=== PATIENT | female | born 1945 | race Caucasian/White ===

== ENCOUNTER 2017-04-30 12:40 | Outpatient (CLI) | payer MEDICARE, OTHER ==
[~2017-04-30] VITALS: Ht 167.6 cm; Wt 83.9 kg
[~2017-04-30 12:40] MED LIST: ASPI81CH PO; ATOR1TAB21 PO; CALC500T21 PO; CETI10CH PO; FOLI1TAB4 PO; MONT10TA2 PO; MULT1TAB10 PO; PEPC1TAB2 PO; PROAAER10 INH; SPIR25TA2 PO; TORS10TA3 PO; VITA100066 PO
[2017-04-30] MEDS ORDERED: NS 1,000 ML IV ONE (13:00)
[2017-04-30] MEDS ORDERED: PROPOFOL 200 MG/20 ML VIAL As Ordered ONE ×2 (13:29→13:37)
[2017-04-30] MEDS ORDERED: LIDOCAINE 2% INJ 100 MG/5 ML SDV (FOR ANES.) As Ordered ONE (13:29)
--- NOTE | 2017-04-30 13:48 | ROOR ---
Patient Name: Naheed Vallejo Procedure Date: 04/30/2017 1:25 PM Date of : 1945 Age: 71 Room: [facility] Gender: Female Note Status: Finalized Procedure: Colonoscopy Indications: Screening in patient at increased risk: Family history of 1st-degree relative with colorectal cancer Providers: Francisco Hoover Jr, MD Referring MD: BENJAMIN MAYA MD Requesting Provider: Medicines: Propofol per Anesthesia Complications: No immediate complications. Procedure: Pre-Anesthesia Assessment: - Prior to the procedure, a History and Physical was performed, and patient medications and allergies were reviewed. The patient is competent. The risks and benefits of the procedure and the sedation options and risks were discussed with the patient. All questions were answered and informed consent was obtained. Patient identification and proposed procedure were verified by the physician and the nurse in the pre-procedure area and in the procedure room. Mental Status Examination: alert and oriented. Airway Examination: normal oropharyngeal airway and neck mobility. Respiratory Examination: clear to auscultation. CV Examination: normal. ASA Grade Assessment: II - A patient with mild systemic disease. After reviewing the risks and benefits, the patient was deemed in satisfactory condition to undergo the procedure. The anesthesia plan was to use moderate sedation / analgesia (conscious sedation). Immediately prior to administration of medications, the patient was re-assessed for adequacy to receive sedatives. The heart rate, respiratory rate, oxygen saturations, blood pressure, adequacy of pulmonary ventilation, and response to care were monitored throughout the procedure. The physical status of the patient was re-assessed after the procedure. The Colonoscope was introduced through the anus and advanced to the cecum, identified by appendiceal orifice and ileocecal valve. The colonoscopy was performed without difficulty. The patient tolerated the procedure well. The quality of the bowel preparation was adequate and good. Findings: The perianal and digital rectal examinations were normal. Pertinent negatives include normal sphincter tone, no palpable rectal lesions and no anal lesion or abnormality was detected. The rectum, recto-sigmoid colon, sigmoid colon, descending colon, transverse colon, ascending colon, cecum, appendiceal orifice and ileocecal valve appeared normal. Impression: - The rectum, recto-sigmoid colon, sigmoid colon, descending colon, transverse colon, ascending colon, cecum, appendiceal orifice and ileocecal valve are normal. - No specimens collected. Recommendation: - Discharge patient to home (ambulatory). - Repeat colonoscopy in 5 years for surveillance. Francisco Hoover MD Francisco Hoover Jr, MD 04/30/2017 1:47:38 PM This report has been signed electronically. Number of Addenda: 0 Note Initiated On: 04/30/2017 1:25 PM Estimated Blood Loss: Estimated blood loss: none.
[2017-04-30 14:17] VITALS: BP 146/72
== END 2017-04-30 14:18 | disposition home or self-care (01) ==
LOC: M OPP 12:40
PROVIDERS: ATTEND Surgery
DX: Z12.11 Encounter for screening for malignant neoplasm of colon (principal); Z80.0 Family history of malignant neoplasm of digestive organs; Z86.010 Personal history of colon polyps; J31.0 Chronic rhinitis; I11.9 Hypertensive heart disease without heart failure; I48.91 Unspecified atrial fibrillation; E78.00 Pure hypercholesterolemia, unspecified; I50.9 Heart failure, unspecified; I48.92 Unspecified atrial flutter; J45.909 Unspecified asthma, uncomplicated; G47.30 Sleep apnea, unspecified; M85.80 Other specified disorders of bone density and structure, unspecified site; Z79.899 Other long term (current) drug therapy; Z79.01 Long term (current) use of anticoagulants; Z79.82 Long term (current) use of aspirin; Z87.891 Personal history of nicotine dependence

== ENCOUNTER → 2019-03-08 | Outpatient (CLI) | payer MEDICARE, OTHER ==
[~2019-03-08] MED LIST changes: -ASPI81CH PO; +ASPI81CH49 PO; +FOLI1TAB11 PO; -FOLI1TAB4 PO; -PEPC1TAB2 PO; +PEPC40TA12 PO; +SPIR-10 PO; -SPIR25TA2 PO
[2019-03-08 14:18] LABS: ALBUMIN 4.2 GM/DL (3.2-5.2); BILIRUBIN,TOTAL 0.8 MG/DL (0.2-1.0); CALCIUM LEVEL 9.6 MG/DL (8.8-10.2); CHOLESTEROL RISK RATIO 2.393 (<5); CREATININE FOR GFR 1.2 MG/DL (0.55-1.30); GLOMERULAR FILTRATION RATE 46.8 (>39); POTASSIUM SERUM 4.1 MEQ/L (3.5-5.1); TOTAL PROTEIN 7.4 GM/DL (6.4-8.2)
== END ==
LOC: M WUC 08:32
PROVIDERS: ATTEND Internal Medicine
DX: E78.5 Hyperlipidemia, unspecified (principal); I10 Essential (primary) hypertension

== ENCOUNTER → 2019-05-22 | Outpatient (CLI) | payer MEDICARE, OTHER ==
--- NOTE | 2019-05-23 19:12 | SLEEPCENT ---
DATE OF PROCEDURE: 05/22/2019 ORDERED BY: Jeanmarie Cedillo PA-C Nocturnal polysomnography was performed for reevaluation of sleep physiology in this patient with a prior history of obstructive sleep apnea syndrome who has accomplished significant weight loss. 7 hours and 23 minutes of data were reviewed. There were 384 minutes of sleep identified. Sleep latency was normal at 28 minutes. Rapid eye movement (REM) latency was normal at 72 minutes. Sleep architecture was good with four REM cycles. Overall sleep efficiency 88%. The patient's electrocardiogram showed a sinus rhythm with occasional premature atrial contractions (PACs), average heart rate 57 beats per minute. EEG showed normal waveforms for awake and sleep. There were 11 respiratory events identified of 10 seconds in duration or greater for an apnea-hypopnea index of 1.7. The events were exclusively in stage REM. Arousals from respiratory events occurred only 1.6 times per hour. There was little activity in the limb leads and saturations remained normal. Remaining measures of sleep physiology were normal. IMPRESSION: Normal nocturnal polysomnography with snoring.
== END ==
LOC: M SLEEP 20:00
PROVIDERS: ATTEND Physician Assistant
DX: R06.83 Snoring (principal)

== ENCOUNTER → 2020-10-17 | Outpatient (CLI) | payer SELFPAY ==
[~2020-10-17] MED LIST changes: +MONT10TA10 PO; -MONT10TA2 PO
== END ==
LOC: M LABSMTC 11:22
PROVIDERS: ATTEND Pediatrics
DX: Z20.822 Contact with and (suspected) exposure to COVID-19 (principal)

== ENCOUNTER → 2022-06-22 | Outpatient (CLI) | payer MEDICARE, OTHER ==
[~2022-06-22] MED LIST changes: +ALEN70TA87 PO; +ATEN25TA PO; -MONT10TA10 PO; +MONT10TA97 PO; +MULT-90 PO; +SUPE600T4 PO; +VITA100093 PO
== END ==
LOC: M LABSMTC 11:27
PROVIDERS: ATTEND Anesthesiology
DX: Z01.812 Encounter for preprocedural laboratory examination (principal); Z20.822 Contact with and (suspected) exposure to COVID-19

== ENCOUNTER 2022-06-26 09:13 | Day surgery (SDC) | payer MEDICARE, OTHER ==
[~2022-06-26] VITALS: Ht 167.6 cm; Wt 73.5 kg
[~2022-06-26 09:13] MED LIST changes: +NS 1,000 ML IV ONE
[2022-06-26] MEDS ORDERED: LIDOCAINE 2% 100MG/5ML SDV (FOR ANES.) As Ordered ONE (09:56)
[2022-06-26] MEDS ORDERED: propofoL 200 MG/20 ML VIAL As Ordered ONE (09:56)
[2022-06-26 10:53] VITALS: BP 102/56
== END 2022-06-26 11:11 | disposition home or self-care (01) ==
LOC: M OPP 09:13
PROVIDERS: ATTEND Surgery
DX: Z12.11 Encounter for screening for malignant neoplasm of colon (principal); Z80.0 Family history of malignant neoplasm of digestive organs; Q43.8 Other specified congenital malformations of intestine; Z79.51 Long term (current) use of inhaled steroids; Z79.82 Long term (current) use of aspirin; Z79.899 Other long term (current) drug therapy; I48.91 Unspecified atrial fibrillation; I34.9 Nonrheumatic mitral valve disorder, unspecified; J45.909 Unspecified asthma, uncomplicated; E78.00 Pure hypercholesterolemia, unspecified; M18.0 Bilateral primary osteoarthritis of first carpometacarpal joints; Z86.79 Personal history of other diseases of the circulatory system

== ENCOUNTER → 2024-03-29 | Outpatient (CLI) | payer MEDICARE, OTHER ==
[~2024-03-29] MED LIST changes: -NS 1,000 ML IV ONE
== END ==
LOC: M EKG 10:48
PROVIDERS: ATTEND Internal Medicine
DX: I48.0 Paroxysmal atrial fibrillation (principal); I49.5 Sick sinus syndrome

== ENCOUNTER → 2024-04-04 | Outpatient (CLI) | payer MEDICARE, OTHER | LOC: M PLAIMG 10:51 | PROVIDERS: ATTEND Physician Assistant | DX: I08.0 Rheumatic disorders of both mitral and aortic valves (principal); I77.810 Thoracic aortic ectasia; Z48.812 Encounter for surgical aftercare following surgery on the circulatory system; R00.1 Bradycardia, unspecified; I45.10 Unspecified right bundle-branch block ==

== ENCOUNTER 2024-05-25 15:02 | Inpatient (IN) | payer MEDICARE, OTHER ==
[~2024-05-25] VITALS: Ht 167.6 cm; Wt 70.6 kg
[2024-05-25 16:21] LABS: VENOUS BASE EXCESS 1.8 (-2.0-2.0); VENOUS HCO3 26.8 MMOL/L (23.0-27.0); VENOUS O2 SATURATION 82.4 % (60.0-80.0); VENOUS PARTIAL PRESSURE CO2 43.6 mmHg (38.0-50.0); VENOUS PARTIAL PRESSURE O2 45.1 mmHg (30.0-50.0); VENOUS PH 7.407 UNITS (7.330-7.430); VENOUS STANDARD HCO3 25.7 MMOL/L; VENOUS TOTAL CO2 28.2 MMOL/L (24.0-28.0)
[2024-05-25] MEDS: NS 1,000 ML IV ONE (16:23)
[2024-05-25 16:33] LABS: BASO % 0.3 % (0.0-1.0); EOS # 0.1 10^3/uL (0.0-0.5); HEMATOCRIT 35.1 % (36.0-47.0); HEMOGLOBIN 12.3 g/dl (12.0-15.5); LYMPH % 15.3 % (24.0-44.0); MEAN CORPUSCULAR VOLUME 94.1 fl (80.0-96.0); MONO # 0.9 10^3/uL (0.0-0.8); NEUTROPHILS # 4.8 10^3/uL (1.5-8.5); NEUTROPHILS % 70.3 % (36.0-66.0); PLATELET COUNT, AUTOMATED 143 10^3/uL (150-450); RED BLOOD COUNT 3.73 10^6/uL (4.00-5.40); WHITE BLOOD COUNT 6.8 10^3/uL (4.0-10.0)
[2024-05-25 16:50] LABS: AMYLASE 62 U/L (30-118)
[2024-05-25 16:51] LABS: ALBUMIN 3.3 G/DL (3.2-5.2); ALKALINE PHOSPHATASE 142 U/L (46-116); ALT/SGPT 49 U/L (7.0-40); AST/SGOT 59 U/L (<34); BILIRUBIN,DIRECT 0.2 MG/DL (<0.4); BILIRUBIN,TOTAL 0.4 MG/DL (0.3-1.2); BLOOD UREA NITROGEN 25 MG/DL (9-23); CALCIUM LEVEL 8.2 MG/DL (8.3-10.6); CARBON DIOXIDE LEVEL 27 MMOL/L (20-31); CHLORIDE LEVEL 100 MMOL/L (98-107); CREATININE FOR GFR 1.09 MG/DL (0.55-1.30); GLOMERULAR FILTRATION RATE 51.5 (>39); GLUCOSE, FASTING 105 MG/DL (74-106); POTASSIUM SERUM 3.9 MMOL/L (3.5-5.1); SODIUM LEVEL 132 MMOL/L (136-145); TOTAL PROTEIN 7.5 G/DL (5.7-8.2)
[2024-05-25 16:58] LABS: PROCALCITONIN 1.75 ng/ml
[2024-05-25] MEDS: METOPROLOL 5 MG/5 ML VIAL IV SCH (16:58)
[2024-05-25 17:00] LABS: INR 1.03; PARTIAL THROMBOPLASTIN TIME 37.6 SECONDS (24.8-34.2); PROTHROMBIN TIME 13.2 SECONDS (12.5-14.5)
[2024-05-25] MEDS ORDERED: PILL CUTTER 1 EACH XX ONE (17:27)
[2024-05-25 17:30] VITALS: BP 106/76
[2024-05-25] MEDS: METOPROLOL TART 25 MG TABLET PO ONE (17:30)
[2024-05-25] MEDS ORDERED: ISOVUE-370 76% 100ML VIAL As Ordered ONE (18:00)
[2024-05-25 18:03] LABS: APPEARANCE, URINE CLEAR (CLEAR); BACTERIA, URINE AUTO NEGATIVE (NEGATIVE); BILIRUBIN, URINE AUTO NEGATIVE (NEGATIVE); BLOOD, URINE BLOOD NEGATIVE (NEGATIVE); COLOR, URINE STRAW (YELLOW); GLUCOSE, URINE (UA) AUTO NEGATIVE (NEGATIVE); KETONE, URINE AUTO NEGATIVE (NEGATIVE); LEUKOCYTE ESTERASE, URINE AUTO NEGATIVE (NEGATIVE); NITRITE, URINE AUTO NEGATIVE (NEGATIVE); PROTEIN, URINE AUTO NEGATIVE (NEGATIVE); RBC, URINE AUTO 0 /HPF (0-3); SPECIFIC GRAVITY URINE AUTO 1.004 (1.002-1.035); SQUAMOUS EPITHELIAL CELL UR AU 0 /HPF (0-6); UROBILINOGEN, URINE AUTO 0.2 mg/dL (0.0-2.0); WBC, URINE AUTO 1 /HPF (0-3)
[2024-05-25 18:07] LABS: MONO SCRN NEGATIVE (NEGATIVE)
[2024-05-25] MEDS: cefTRIAXone SOD 2 GM in D5W MINI-BAG PLUS 50 ML IV ONE (18:21)
[2024-05-25] MEDS ORDERED: VITA-243 PO (19:37)
[2024-05-25] MEDS ORDERED: TORS10TA3 PO (19:37)
[2024-05-25] MEDS ORDERED: HOME MED LIST COMPLETE! XX SCH (19:40)
[2024-05-25] MEDS: TORSEMIDE 10 MG TABLET PO SCH (21:00)
[2024-05-25] MEDS ORDERED: PILL CUTTER 1 EACH XX PRN (22:45)
[2024-05-25] MEDS: MONTELUKAST 10 MG TAB PO SCH (23:01)
[2024-05-25 23:16] VITALS: BP 113/67; TEMP 100.6; O2SAT 98
[2024-05-25] MEDS: PIPERACILLIN/TAZOBACTAM SOD 4.5 GM in D5W MINI-BAG PLUS 50 ML IV SCH (23:35)
[2024-05-26 04:19] VITALS: BP 99/51; TEMP 100.7; O2SAT 95
[2024-05-26 07:08] LABS: BASO % 0.4 % (0.0-1.0); EOS # 0.1 10^3/uL (0.0-0.5); EOS % 2.5 % (0.0-3.0); HEMATOCRIT 31.8 % (36.0-47.0); HEMOGLOBIN 10.7 g/dl (12.0-15.5); LYMPH # 1.1 10^3/uL (1.5-5.0); LYMPH % 23.9 % (24.0-44.0); MEAN CORPUSCULAR HEMOGLOBIN 32.2 pg (27.0-33.0); MEAN CORPUSCULAR HGB CONC 33.6 g/dl (32.0-36.5); MEAN CORPUSCULAR VOLUME 95.8 fl (80.0-96.0); MONO # 0.8 10^3/uL (0.0-0.8); MONO % 16.3 % (2.0-8.0); NEUTROPHILS # 2.7 10^3/uL (1.5-8.5); NEUTROPHILS % 56.7 % (36.0-66.0); PLATELET COUNT, AUTOMATED 136 10^3/uL (150-450); RED BLOOD COUNT 3.32 10^6/uL (4.00-5.40); WHITE BLOOD COUNT 4.7 10^3/uL (4.0-10.0)
[2024-05-26 07:36] LABS: CALCIUM LEVEL 7.6 MG/DL (8.3-10.6); GLOMERULAR FILTRATION RATE 56.9 (>39)
[2024-05-26 07:43] LABS: PROCALCITONIN 1.01 ng/ml
[2024-05-26 08:18] VITALS: BP 97/56; TEMP 97.3; O2SAT 97
[2024-05-26] MEDS: TORSEMIDE 10 MG TABLET PO SCH (09:00)
[2024-05-26] MEDS: SPIRONOLACTONE 25 MG TAB PO SCH (09:00)
[2024-05-26] MEDS: ENOXAPARIN 40MG/0.4ML SYRINGE (J1650 PER 10MG) SC SCH (10:00)
[2024-05-26] MEDS: ASPIRIN 81MG CHEW TABLET PO SCH (10:00)
[2024-05-26] MEDS: FOLIC ACID 1MG TAB PO SCH (10:00)
[2024-05-26] MEDS: ATORVASTATIN 20 MG TAB PO SCH (10:01)
[2024-05-26] MEDS: CETIRIZINE (ZyrTEC) 10 MG TAB PO SCH (10:01)
[2024-05-26 11:30] VITALS: BP 117/57; TEMP 97; O2SAT 98
[2024-05-26 20:09] VITALS: BP 111/59; TEMP 96.8; O2SAT 99
[2024-05-27 04:00] VITALS: BP 119/66; TEMP 96.5; O2SAT 100
[2024-05-27 06:34] LABS: HEMATOCRIT 32.1 % (36.0-47.0); HEMOGLOBIN 10.8 g/dl (12.0-15.5); MEAN CORPUSCULAR HGB CONC 33.6 g/dl (32.0-36.5); MEAN CORPUSCULAR VOLUME 95.3 fl (80.0-96.0); PLATELET COUNT, AUTOMATED 153 10^3/uL (150-450); RED BLOOD COUNT 3.37 10^6/uL (4.00-5.40); WHITE BLOOD COUNT 3.8 10^3/uL (4.0-10.0)
[2024-05-27 06:56] LABS: CALCIUM LEVEL 8.2 MG/DL (8.3-10.6); CREATININE FOR GFR 1.07 MG/DL (0.55-1.30); GLOMERULAR FILTRATION RATE 52.7 (>39); POTASSIUM SERUM 4.1 MMOL/L (3.5-5.1)
[2024-05-27 08:00] LABS: C REACTIVE PROTEIN QUANTITATIV 7.2 MG/DL (<1.0)
[2024-05-27 08:19] LABS: ALBUMIN 2.6 G/DL (3.2-5.2); BILIRUBIN,DIRECT 0.2 MG/DL (<0.4); BILIRUBIN,TOTAL 0.5 MG/DL (0.3-1.2); TOTAL PROTEIN 6.5 G/DL (5.7-8.2)
[2024-05-27 12:00] VITALS: BP 122/79; TEMP 97.5; O2SAT 98
[2024-05-27] MEDS ORDERED: LEVO1TAB40 PO (13:07)
[2024-05-27] MEDS ORDERED: PERM5CRE9 TOP (19:26)
== END 2024-05-27 15:17 | disposition home or self-care (01) | DRG 194 ==
LOC: M ED 15:02 → M ED INP 20:19 → M PCU 23:10 → M MSPAV 05-26 11:25
PROVIDERS: ADMIT Family Medicine; ATTEND Internal Medicine
DX: J18.9 Pneumonia, unspecified organism (principal); I47.10 Supraventricular tachycardia, unspecified; J98.11 Atelectasis; I48.92 Unspecified atrial flutter; E78.5 Hyperlipidemia, unspecified; I10 Essential (primary) hypertension; R32 Unspecified urinary incontinence; I48.91 Unspecified atrial fibrillation; I27.20 Pulmonary hypertension, unspecified; J45.909 Unspecified asthma, uncomplicated; Z79.82 Long term (current) use of aspirin; Z79.899 Other long term (current) drug therapy

== ENCOUNTER → 2024-08-04 | Outpatient (CLI) | payer MEDICARE, OTHER ==
[~2024-08-04] MED LIST changes: +LEVO1TAB40 PO; +PERM5CRE9 TOP; +VITA-243 PO
== END ==
LOC: M PLARAD 09:24
PROVIDERS: ATTEND Specialist
DX: N28.89 Other specified disorders of kidney and ureter (principal)

== ENCOUNTER → 2024-09-29 | Outpatient (CLI) | payer MEDICARE, OTHER ==
[2024-09-29 17:42] LABS: HEMATOCRIT 37.5 % (36.0-47.0); HEMOGLOBIN 12.1 g/dl (12.0-15.5); MEAN CORPUSCULAR HEMOGLOBIN 31.5 pg (27.0-33.0); MEAN CORPUSCULAR HGB CONC 32.3 g/dl (32.0-36.5); MEAN CORPUSCULAR VOLUME 97.7 fl (80.0-96.0); PLATELET COUNT, AUTOMATED 210 10^3/uL (150-450); RED BLOOD COUNT 3.84 10^6/uL (4.00-5.40); WHITE BLOOD COUNT 6.1 10^3/uL (4.0-10.0)
[2024-09-29 17:55] LABS: CALCIUM LEVEL 9.1 MG/DL (8.3-10.6); CREATININE FOR GFR 0.99 MG/DL (0.55-1.30); GLOMERULAR FILTRATION RATE 57.5 (>32); POTASSIUM SERUM 4.2 MMOL/L (3.5-5.1)
== END ==
LOC: M WUC 13:30
PROVIDERS: ATTEND Nurse Practitioner Family
DX: Z01.818 Encounter for other preprocedural examination (principal)

== ENCOUNTER → 2024-10-07 | Outpatient (CLI) | payer MEDICARE, OTHER ==
[~2024-10-07] MED LIST changes: +DIGO0.123 PO
== END ==
LOC: M PLAIMG 09:32
PROVIDERS: ATTEND Nurse Practitioner Family
DX: M67.441 Ganglion, right hand (principal)

== ENCOUNTER 2024-10-18 06:15 | Day surgery (SDC) | payer MEDICARE, OTHER ==
[~2024-10-18] VITALS: Ht 167.6 cm; Wt 67.7 kg
[2024-10-18] VITALS (8 sets, daily range): BP systolic 121–157; BP diastolic 57–78; TEMP 97.2–97.7; O2SAT 94–99
[2024-10-18] MEDS ORDERED: LIDOCAINE 2% 100MG/5ML SDV (FOR ANES.) As Ordered ONE (06:38)
[2024-10-18] MEDS ORDERED: fentaNYL 100 MCG/2 ML INJECTION As Ordered ONE (06:38)
[2024-10-18] MEDS ORDERED: HYDROmorphone HCL 2MG/ML 1ML VIAL As Ordered ONE (06:38)
[2024-10-18] MEDS ORDERED: ROCURONIUM BROMIDE 50MG/5ML VIAL As Ordered ONE (06:38)
[2024-10-18] MEDS ORDERED: propofoL 200 MG/20 ML VIAL As Ordered ONE (06:38)
[2024-10-18] MEDS ORDERED: ACETAMINOPHEN 1000MG/100ML IV BAG As Ordered ONE (06:44)
[2024-10-18] MEDS ORDERED: PERCOCET 5MG/325MG TAB PO PRN (07:40)
[2024-10-18] MEDS ORDERED: ACETAMINOPHEN 325 MG TAB PO PRN (07:40)
[2024-10-18] MEDS: ceFAZolin SOD 2 GM in IV 1 EA IV ONE (07:58)
[2024-10-18] MEDS ORDERED: GLYCOPYRROLATE INJ 0.2 MG/ML 2 ML VIAL As Ordered ONE (07:59)
[2024-10-18] MEDS ORDERED: ePHEDrine SULFATE 25 MG/5 ML(5MG/ML) SYRINGE As Ordered ONE (08:01)
[2024-10-18] MEDS: LIDOCAINE 1% SDV 30ML VIAL As Ordered ONE (08:30)
[2024-10-18] MEDS: FILTER 1.2 MICRON (ADULT TPN/MANNITOL/REMICADE) XX ONE (08:48)
[2024-10-18] MEDS: DOCUSATE SODIUM 100MG CAPSULE PO SCH (09:00)
[2024-10-18] MEDS: MANNITOL 25% 12.5GM 50ML VIAL As Ordered ONE (09:00)
[2024-10-18] MEDS: LR 1,000 ML IV SCH (09:00)
[2024-10-18] MEDS ORDERED: ONDANSETRON 4MG 2ML VIAL As Ordered ONE (09:33)
[2024-10-18] MEDS ORDERED: SUGAMMADEX SODIUM 500 MG/5 ML VIAL (BRIDION) As Ordered ONE (09:33)
[2024-10-18] MEDS ORDERED: oxyCODONE 5MG TAB PO PRN (12:10)
[2024-10-18] MEDS ORDERED: MORPHINE 2 MG/ML 1ML VIAL IV PRN (12:10)
[2024-10-18] MEDS ORDERED: ONDANSETRON 4MG 2ML VIAL IV PRN (12:10)
[2024-10-18] MEDS ORDERED: fentaNYL 100 MCG/2 ML INJECTION IV PRN (12:10)
[2024-10-18 12:50] LABS: HEMOGLOBIN 11.7 g/dl (12.0-15.5); MEAN CORPUSCULAR HEMOGLOBIN 31.8 pg (27.0-33.0); MEAN CORPUSCULAR HGB CONC 33.4 g/dl (32.0-36.5); MEAN CORPUSCULAR VOLUME 95.1 fl (80.0-96.0); PLATELET COUNT, AUTOMATED 156 10^3/uL (150-450); RED BLOOD COUNT 3.68 10^6/uL (4.00-5.40); WHITE BLOOD COUNT 5.5 10^3/uL (4.0-10.0)
[2024-10-18 13:13] LABS: CALCIUM LEVEL 8.4 MG/DL (8.3-10.6); CREATININE FOR GFR 1.21 MG/DL (0.55-1.30); GLOMERULAR FILTRATION RATE 45.6 (>32)
[2024-10-18] MEDS: NS (Normal Saline) 0.9% 1,000 ML IV SCH (14:56)
[2024-10-18] MEDS: ceFAZolin SOD 1 GM in DEXTROSE 5% (D5W) ADV/MINI-BAG 50 ML IV SCH (14:56)
[2024-10-18] MEDS: ONDANSETRON 4MG 2ML VIAL IV PRN (14:56)
[2024-10-18] MEDS ORDERED: PILL CUTTER 1 EACH XX PRN (16:00)
[2024-10-18] MEDS ORDERED: HOME MED LIST COMPLETE! XX SCH (16:15)
[2024-10-18] MEDS: TORSEMIDE 10 MG TABLET PO SCH (21:17)
[2024-10-18] MEDS: MONTELUKAST 10 MG TAB PO SCH (21:17)
[2024-10-19] VITALS: BP 130/65; TEMP 97.5; O2SAT 97
[2024-10-19 04:00] VITALS: BP 128/63; TEMP 97.9; O2SAT 97
[2024-10-19 06:04] LABS: HEMOGLOBIN 11.1 g/dl (12.0-15.5); MEAN CORPUSCULAR HEMOGLOBIN 31.7 pg (27.0-33.0); MEAN CORPUSCULAR HGB CONC 33.6 g/dl (32.0-36.5); MEAN CORPUSCULAR VOLUME 94.3 fl (80.0-96.0); PLATELET COUNT, AUTOMATED 163 10^3/uL (150-450); WHITE BLOOD COUNT 7.5 10^3/uL (4.0-10.0)
[2024-10-19 06:25] LABS: CALCIUM LEVEL 7.8 MG/DL (8.3-10.6); CREATININE FOR GFR 1.47 MG/DL (0.55-1.30); GLOMERULAR FILTRATION RATE 36.4 (>32); POTASSIUM SERUM 4.6 MMOL/L (3.5-5.1)
[2024-10-19 08:00] VITALS: BP 123/62; TEMP 97.5; O2SAT 98
[2024-10-19] MEDS ORDERED: ONDA-83 PO (08:43)
[2024-10-19] MEDS ORDERED: COLA100C5 PO (08:43)
[2024-10-19] MEDS ORDERED: PERCOCET PO (08:43)
[2024-10-19] MEDS: DIGOXIN 0.125 MG TAB PO SCH (09:00)
[2024-10-19] MEDS: SPIRONOLACTONE 25 MG TAB PO SCH (09:12)
[2024-10-19] MEDS: TORSEMIDE 10 MG TABLET PO SCH (09:12)
[2024-10-19] MEDS: ATORVASTATIN 20 MG TAB PO SCH (09:13)
[2024-10-19] MEDS: CETIRIZINE (ZyrTEC) 10 MG TAB PO SCH (09:13)
[2024-10-19] MEDS: PERCOCET 5MG/325MG TAB PO PRN (09:16)
[2024-10-19 10:55] VITALS: BP 130/63; TEMP 97.9; O2SAT 98
[2024-10-19 12:00] VITALS: BP 130/65; TEMP 97.6; O2SAT 97
[2024-10-19 12:42] LABS: CREATININE BF 1.4 MG/DL (NOT ESTABLISHED); SOURCE, BODY FLUID CREATININE PERITONEAL
== END 2024-10-19 13:30 | disposition home or self-care (01) ==
LOC: M OR 06:15 → UNDOADMIN 06:15 → M ED INP 06:15 → M SDC 06:15 → EDSTATUS 07:30 → M ED INP 14:37 → M MS5PR 14:37 → M OR 14:37 → UNDODISIN 10-19 13:30 → M SDC 10-19 13:30
PROVIDERS: ATTEND Urology
DX: N28.89 Other specified disorders of kidney and ureter (principal); N28.1 Cyst of kidney, acquired; Z79.82 Long term (current) use of aspirin; Z79.899 Other long term (current) drug therapy
CPT/HCPCS: 36415; 50541; 50543; 80048; 82570; 85027; 86850; 86900; 86901; 88305; 88307; 96374; 96376; J0131; J0665; J0690; J1100; J1171; J1596; J2150; J2405; J3010; S2900

== ENCOUNTER → 2024-11-01 | Outpatient (CLI) | payer MEDICARE, OTHER ==
[~2024-11-01] MED LIST changes: +COLA100C5 PO; +ONDA-83 PO; +PERCOCET PO
[2024-11-01 16:42] LABS: HEMATOCRIT 33.3 % (36.0-47.0); HEMOGLOBIN 10.9 g/dl (12.0-15.5); MEAN CORPUSCULAR HEMOGLOBIN 31.9 pg (27.0-33.0); MEAN CORPUSCULAR HGB CONC 32.7 g/dl (32.0-36.5); MEAN CORPUSCULAR VOLUME 97.4 fl (80.0-96.0); PLATELET COUNT, AUTOMATED 350 10^3/uL (150-450); RED BLOOD COUNT 3.42 10^6/uL (4.00-5.40); WHITE BLOOD COUNT 6.4 10^3/uL (4.0-10.0)
[2024-11-01 16:58] LABS: CREATININE FOR GFR 1.15 MG/DL (0.55-1.30); GLOMERULAR FILTRATION RATE 48.3 (>32); POTASSIUM SERUM 4.2 MMOL/L (3.5-5.1)
== END ==
LOC: M WUC 11:48
PROVIDERS: ATTEND Nurse Practitioner Family
DX: Z48.89 Encounter for other specified surgical aftercare (principal)

== ENCOUNTER → 2025-05-16 | Outpatient (CLI) | payer MEDICARE, OTHER ==
[~2025-05-16] MED LIST changes: -PERM5CRE9 TOP; +PERM60CR2 TOP
[2025-05-16 15:53] LABS: CALCIUM LEVEL 9.6 MG/DL (8.3-10.6); CARBON DIOXIDE LEVEL 33.0 MMOL/L (20-31); CHLORIDE LEVEL 98.0 MMOL/L (98-107); CREATININE FOR GFR 1.27 MG/DL (0.55-1.30); GLOMERULAR FILTRATION RATE 42.8 (>32); POTASSIUM SERUM 3.8 MMOL/L (3.5-5.1); SODIUM LEVEL 140.0 MMOL/L (136-145)
== END ==
LOC: M WUC 11:54
PROVIDERS: ATTEND Urology
DX: C64.9 Malignant neoplasm of unspecified kidney, except renal pelvis (principal)

== ENCOUNTER → 2025-05-18 | Outpatient (CLI) | payer MEDICARE, OTHER ==
[~2025-05-18] MED LIST changes: +ISOVUE-370 76% 100 ML VIAL As Ordered ONE; +PERM5CRE9 TOP; -PERM60CR2 TOP
== END ==
LOC: M RAD 09:37
PROVIDERS: ATTEND Urology
DX: C64.9 Malignant neoplasm of unspecified kidney, except renal pelvis (principal)
CPT/HCPCS: 36415; 71046; 74170; 80048; Q9967

== ENCOUNTER → 2025-06-22 | Outpatient (CLI) | payer MEDICARE, OTHER ==
[~2025-06-22] MED LIST changes: -ISOVUE-370 76% 100 ML VIAL As Ordered ONE; -PERM5CRE9 TOP; +PERM60CR2 TOP
== END ==
LOC: M PLAIMG 10:34
PROVIDERS: ATTEND Physician Assistant
DX: I08.3 Combined rheumatic disorders of mitral, aortic and tricuspid valves (principal)